=== PATIENT | male | born 1970 | race Caucasian/White ===

== ENCOUNTER 2020-11-16 07:58 | Outpatient (CLI) | payer OTHER, SELFPAY ==
--- NOTE | 2020-11-16 08:08 | MR_ITS ---
WS: [id number] MRI RIGHT KNEE HISTORY: M25.569 - Pain in unspecified knee COMPARISON: 09/22/2020 Anterior cruciate ligament: Intact. Posterior cruciate ligament: Intact. Medial collateral ligament: Intact. Posterior lateral corner structures: Intact. Medial menisci: Horizontal tear in the posterior meniscus extends to the inferior articular surface. Anterior horn is normal. Lateral meniscus: Intact. Normal signal, size and shape. Extensor mechanism: Distal quadriceps tendon and patellar tendons are intact. Fluid and soft tissue: Small suprapatellar joint effusion No Caro's cyst. Osseous and articular structures: Patellofemoral compartment: Normal. Medial compartment: Very mild narrowing of the medial compartment. There is intermediate increased si gnal in the cartilage of the tibial plateau and femoral condyle towards the intercondylar notch. No f ull-thickness tears are identified. This probably indicates contusion type injury. Small amount of ma rrow edema in the medial tibial plateau. Lateral compartment: Very minimal narrowing and fissuring of the cartilage. No full thickness defect or marrow edema. MR/MR knee RT wo con* [id number] IMPRESSION: 1. Horizontal tear posterior horn medial meniscus. 2. Contusion type injury involving the cartilage in the medial compartment tow ards the intercondylar notch. 3. Small amount of marrow edema in the medial tibial plateau towards the MCL.
== END 2020-11-16 07:59 | disposition home or self-care (01) ==
PROVIDERS: Visit Provider Orthopaedic Surgery
DX: M25.561 Pain in right knee (principal); S83.241A Other tear of medial meniscus, current injury, right knee, initial encounter; X58.XXXA Exposure to other specified factors, initial encounter; R60.0 Localized edema
CPT/HCPCS: 73721

== ENCOUNTER → 2020-12-02 08:17 | Outpatient (BNVA) | payer OTHER, SELFPAY | PROVIDERS: Visit Provider Orthopaedic Surgery | DX: Z01.812 Encounter for preprocedural laboratory examination (principal); Z20.822 Contact with and (suspected) exposure to COVID-19 | CPT/HCPCS: 87635 ==

== ENCOUNTER 2020-12-08 07:53 | Day surgery (SDC) | payer OTHER, SELFPAY ==
[2020-12-07 15:03] VITALS: BMI 21.7
[2020-12-08] VITALS (7 sets, daily range): BP systolic 113–136; BP diastolic 72–90; PULSE 56–70; RESP 13–18; TEMP 36.1–36.8; O2SAT 97–100
[2020-12-08] MEDS: sodium chloride 0.9% 1,000 ML 30 ML IV (08:26)
--- NOTE | 2020-12-08 08:46 | ANES.PREANE2 ---
Pre-Anesthetic Assessment Pre-Anesthetic Assessment: Height/Weight: Height 1.85 m Weight 74.843 kg Temp Pulse Resp BP Pulse Ox 98.3 F 68 18 116/72 97 12/08/20 08:13 12/08/20 08:13 12/08/20 08:13 12/08/20 08:13 12/08/20 08:13 Preop Diagnosis: Knee Medial meniscal tear Proposed Procedure: Operation Date: 12/08/20 09:45 Proposed Procedures p Knee Arthroscopy right 53257 S83.206A(Right) - Brian Martinez MD Familial anesthetic complications: None Was Beta Demond taken within 24 hours: N/A Was Clonidine taken within 24 hours: N/A Last intake: Intake Last Liquid Date 12/07/20 Last Liquid Time 21:00 Last Solid Date 12/07/20 Last Solid Time 21:00 Social: Social History: Tobacco and No alcohol Exam: Pre-Anes Outpt Exam: alert, oriented x 3, clear to auscultation bilaterally and regular rate & rhythm Airway: Cervical ROM: WNL MP: 2 Dentition: Chipped Anesthetic Plan: ASA status: 2 Anesthesia: General Risk of > 500 ml blood loss (7ml/kg in children): No Meds/Allergies Current Medications: Current Medications Generic Name Dose Route Start Last Admin Trade Name Freq PRN Reason Stop Dose Admin Sodium Chloride 1,000 mls @ 30 ml s/hr 12/08/20 08:00 12/08/20 08:26 Sodium Chloride 0.9% IV 12/09/20 07:59 30 mls/hr .Q24H JESUS Administration PFSH Anesthesia PFSH: Family History Mother Rheumatoid arthritis Grandfather Stroke Social History Smoking and tobacco status: current every day smoker e-cigarettes E-cig/vape details: vape Alcohol intake: former Data Anesthesia Cardiac Studies: No Data to Display
--- NOTE | 2020-12-08 09:38 | W.PM.OPSUD ---
Surgery/Procedure H&P Update DATE OF PROCEDURE: December 08, 2020 DATE H&P PERFORMED: 11/25/20 H&P UPDATE INFORMATION: I have reviewed H&P completed within last 30 days PREOP DIAGNOSIS: Knee Medial meniscal tear PLANNED PROCEDURE: Operation Date: 12/08/20 09:45 Proposed Procedures p Knee Arthroscopy right 16950 S83.206A(Right) - Brian Martinez MD
[2020-12-08] MEDS: morphine 4 mg/mL SDV 1 mL 8 MG IM (10:18)
--- NOTE | 2020-12-08 10:27 | PM.OP ---
Operative Report Date of procedure: December 08, 2020 Pre-op Diagnosis: Right knee Medial meniscal tear Post-op diagnosis: same Post-op Findings: Normal right knee Procedure Done: Diagnostic arthroscopy right knee Pathology: none sent Surgeon: Brian Martinez Anesthesia: General Estimated blood loss (mL): 2 Findings: The patient had no chondromalacia, or central stabilizing ligamentous abnormalities. Condition: stable Disposition: PACU Brief History: The patient is a 50-year-old with chronic right knee pain and an MRI suggesting medial meniscal tearing. Arthroscopic surgery was indicated to improve pain and function Procedure: The patient was taken to the operating room and given a general and he was prepped and draped in the supine position with a tourniquet on the right thigh. The knee was infiltrated with 30 cc of 0.5% Marcaine and 4 mg of morphine. Medial meniscus was carefully probed with no tearing identified. The lateral meniscus was healthy as were chondral surface. The cruciate ligaments were probed and found to be intact and healthy.. The knee was irrigated with saline. Portals were closed with 3-0 Prolene. Sterile dressings were applied. The knee was entered through standard inferior medial and inferior lateral portal. The diagnostic portion arthroscopy was performed with the medial meniscus carefully probed. No significant tearing was identified. The patient was extubated and taken to the recovery room in stable condition.
--- NOTE | 2020-12-08 14:09 | ANE.PACU2 ---
Inpatient post-anesthesia follow up: Airway intact: Yes Vital signs: Temperature 98.1 F Pulse Rate 59 Respiratory Rate 18 Blood Pressure 116/72 Pulse Oximetry 98 Oxygen Delivery Me thod Room Air Oxygen Flow Rate 8 Fraction of Inspir ed Oxygen Hydration adequate: Yes Nausea and vomiting: No Pain level: 2 Mental status: Baseline
== END 2020-12-08 11:35 | disposition home or self-care (01) ==
PROVIDERS: Visit Provider Orthopaedic Surgery
PROC: (CPT 29870; principal; 2020-12-08 09:35)
DX: S83.241A Other tear of medial meniscus, current injury, right knee, initial encounter (principal); X58.XXXA Exposure to other specified factors, initial encounter; F17.290 Nicotine dependence, other tobacco product, uncomplicated
CPT/HCPCS: 29870; J0690; J1100; J2270; J2405; J2704; J3010; J3490; J7030

== ENCOUNTER 2021-05-27 13:19 | Emergency (ER) | payer OTHER, SELFPAY ==
[2021-05-27 13:33] VITALS: BP 109/74; PULSE 52; RESP 15; TEMP 36.7; O2SAT 96; BMI 22.4
--- NOTE | 2021-05-27 13:46 | XRR_ITS ---
PROCEDURE INFORMATION: Exam: XR Left Hand Exam date and time: 05/27/2021 1:46 PM Age: 51 years old Clinical indication: Injury or trauma; Work related; Crushing; Injury date: 05/27/21; Injury details: Patient was drilling through 2 boards and the drill got find it up causing the thumb of his left hand to get pain between 2 boards. His pain is just located in his thumb; Additional info: Injury to hand-crush type injury between wood boards-thumb TECHNIQUE: Imaging protocol: XR Left hand. Views: 3 or more views. Total images: 3 COMPARISON: No relevant prior studies available. FINDINGS: Bones/joints: Small ossification dorsal to 1st metacarpal phalangeal joint without adjacent soft tissue swelling felt to represent tiny osteophyte or avulsed fragment. No additional fracture, subluxation, or dislocation detected. Soft tissues: See Bones/joints finding. XR/XR hand LT min 3V* [id number] IMPRESSION: Small ossification dorsal to 1st metacarpal phalangeal joint without adjacent soft tissue swelling felt to represent tiny osteophyte or avulsed fragment. Radiation Dose CTDIVOL = (mGy): DLP = (mGy-cm)
--- NOTE | 2021-05-27 13:55 | ED_ITS ---
HPI - Extremity Problem General: Chief complaint: Extremity Injury, Upper Stated complaint: left hand pain Time Seen by Provider: 05/27/21 13:36 History of Present Illness: HPI Narrative: Patient is a 51-year-old male comes to the ED with left hand injury. Injury occurred just prior to arrival. Patient was drilling through 2 boards and the drill got find it up causing the thumb of his left hand to get pain between 2 boards. His pain is just located in his thumb and he rates it currently a 5 out of 10. Says it hurts for him to do any movement with his thumb. He has not taken any Tylenol or ibuprofen before coming to the ED. Associated symptoms: Deny chest pain, fever(s) or rash Review of Systems Const: Denies: fever(s), chills or fatigue Eyes: Denies: change in vision or eye discomfort ENMT: Denies: throat pain, odynophagia, nasal discharge or nasal congestion Card: Denies: chest pain, palpitations, edema, swelling of feet/ankles, dyspnea on exertion or orthopnea Resp: Denies: dyspnea, productive cough or non-productive cough GI: Denies: abdominal pain, nausea, vomiting, diarrhea, constipation or hematochezia : Denies: flank pain, difficulty urinating, dysuria or hematuria Musc: Reports: extremity pain (left hand-thumb); Denies: neck pain, back pain or extremity swelling Skin/Breast: Denies: rash or new lesions Neuro: Denies: headache(s), numbness in extremities or weakness in extremities PFS ED PFSH: Family History Mother Rheumatoid arthritis Grandfather Stroke Social History Smoking and tobacco status: current every day smoker e-cigarettes E-cig/vape details: vape Alcohol intake: former Physical Exam Const: COMMON NORMALS: no acute distress, patient oriented x3, healthy appearing and alert GENERAL APPEARANCE: cooperative and comfortable HENMT: COMMON NORMALS: normocephalic HEAD & SCALP: normocephalic MOUTH: Normal oral and palatal mucosa present THROAT: posterior oropharynx normal and uvula midline Neck/C-Spine: COMMON NORMALS: supple GENERAL: Yes normal visual inspection Resp: COMMON NORMALS: normal respiratory effort, No retractions, No use of accessory muscles and clear to auscultation bilaterally AUSCULTATION: clear to auscultation bilaterally Cardio: COMMON NORMALS: regular rate, regular rhythm, S1 normal heart sound present, S2 normal heart sound present, No gallops present (Cardio), No clicks present (Cardio), No murmurs present (Cardio) and Peripheral pulses 2+ throughout RATE: regular rate RHYTHM: regular rhythm HEART SOUNDS: S1 normal heart sound present and S2 normal heart sound present PERIPHERAL PULSES: Peripheral pulses 2+ throughout GI: COMMON NORMALS: Normal to inspection, nondistended, normoactive bowel sounds present, Soft to palpation, non-tender and no masses PALPATION: Yes Soft to palpation : COMMON NORMALS: Yes no CVA tenderness BLADDER/KIDNEY EXAM: Yes no CVA tenderness Back/Pelvis: COMMON NORMALS: no CVA tenderness Extremity: LEFT UPPER EXTREMITY: Yes hand & digits Left hand and digits: Yes inspection (No deformity noted. Mild swelling. No nail damage), Yes palpation (Tenderness over PIP joint), Yes ROM (Full range of motion, but endorses pain) and Yes neurovascular exam (Intact) Neuro: COMMON NORMALS: patient oriented x3 and moves all extremities SENSORIUM/ORIENTATION: Yes alert Skin: GENERAL SKIN EXAM: dry skin Course Vital Signs: Vital signs: Vital Signs Temperature 98.1 F 05/27/21 16:31 Pulse Rate 52 L 05/27/21 16:31 Respiratory Rate 15 05/27/21 16:31 Blood Pressure 109/74 05/27/21 16:31 Pulse Oximetry 96 05/27/21 16:31 MDM - Extremity (Nontraumatic) MDM Narrative: Medical decision making narrative: Patient is a 51-year-old male comes to the ED with left hand injury. Patient had a smashing injury to left thumb. No nail damage noted. Patient has full range of motion, but does endorse some pain with movement. Neurovascular tact. Left hand x-ray showed no acute fracture. Imaging Data^: Xray Ortho: Attestation: I personally reviewed and interpreted this imaging study as follows: My impression: Left hand?no acute fractures or findings. Discharge Plan Discharge Patient Disposition: Home Clinical Impression: Contusion of left thumb Qualifiers: Encounter type: initial encounter Damage to nail status: without damage Qualified Code(s): S60.012A - Contusion of left thumb without damage to nail, initial encounter Condition: Stable Prescriptions: No Action naproxen 250 mg tablet 250 mg PO BID PRN (Reason: Pain, Moderate) RF: 0 Discharge Orders: Discharge ED (Routine); Ordered 05/27/21 Ordered By: Indio Gomez Discharge Diet: Regular Discharge Activity: Increase activity as tolerated and Limit activity as instru cted Patient Instructions: Contusion in Adults (ED) Activity Restrictions/Additional Instructions: Follow-up with medical provider as directed in 7 to 10 days for reevaluation. Limit activity and rest left hand for the next couple days. Apply cold pack on left thumb to help with symptoms. Take [id number] ibuprofen or naproxen help with pain and swelling. Return to the ER or your medical provider if condition worsens. Please read and understand discharge instructions. Thank you for choosing [facility] for your healthcare needs today. Please realize this is an emergency room and that we are providing you with a medical screening exam and this may not be complete and all inclusive of all the testing and or work up that you may need to determine your ailment or severity of your illness. It is very important that you follow up as instructed or that you return to the Emergency Department should you have concerns or if your condition changes or worsens in any way. Coding Level of Care Code ED Insurance Biller for Dante Stevens Exam Comprehensive
[2021-05-27 16:31] VITALS: BP 109/74; PULSE 52; RESP 15; TEMP 36.7; O2SAT 96
== END 2021-05-27 16:31 | disposition home or self-care (01) ==
PROVIDERS: Emergency Provider Physician Assistant
DX: S60.012A Contusion of left thumb without damage to nail, initial encounter (principal); F17.290 Nicotine dependence, other tobacco product, uncomplicated; W23.0XXA Caught, crushed, jammed, or pinched between moving objects, initial encounter
CPT/HCPCS: 73130; 99282

== ENCOUNTER 2021-09-21 08:28 | Emergency (ER) | payer OTHER, SELFPAY ==
[2021-09-21 08:50] VITALS: BP 122/78; PULSE 61; RESP 16; TEMP 36.7; O2SAT 98; BMI 22.4
[2021-09-21 08:56] VITALS: BP 122/75; PULSE 66; RESP 16; O2SAT 97
--- NOTE | 2021-09-21 08:57 | XR_ITS ---
WS: [id number] Portable AP upright chest, 09/21/2021 Clinical Data: CP Comparison: None. Findings: No nodules, masses or effusions are seen. The heart is normal. The pulmonary vascularity is not increased. No pneumonia or pneumothorax is seen. Monitor leads are on the chest wall. XR/XR chest 1V portable [id number] Impression: Negative chest.
--- NOTE | 2021-09-21 08:57 | ECG_ITS ---
[facility] Test Date: 2021-09-21 Pat Name: Jh Tello Department: Room: Gender: Male Wardrobe Stylist: : 1970 Requested By: Hakan Mina Order Number: [id number] MD: Awilda Hernandez M.D. Measurements Intervals [place] Rate: 65 P: 67 [place]: 152 QRS: 78 QRSD: 84 T: 63 QT: 393 QTc: 410 Interpretive Statements SINUS RHYTHM No previous ECG available for comparison Electronically Signed On 09-22-2021 6:00:04 GREENHOUSE INSTRUCTOR by Awilda Hernandez M.D. [id number]
--- NOTE | 2021-09-21 08:57 | PC.NURSE ---
patient states his depth perception might be off as he has been walking into door frames alot lately
--- NOTE | 2021-09-21 09:05 | W.ED.CHESTPA ---
Documented by User: HORACE Patrick 09/21/21 11:08 HPI - Chest Pain General: Chief Complaint: Chest Pain Stated Complaint: Chest Pain Time Seen by Provider: 09/21/21 08:33 History of Present Illness: Patient states he has had left-sided chest pain since yesterday. Said it hurts when he rolls over on the left side. Denies any recent illness. Denies any chest heaviness nausea vomiting diarrhea fever chills. 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 Associated symptoms: Deny abdominal pain, dyspnea, fever(s), nausea or vomiting Review of Systems Const: Denies: fever(s), chills or body aches Eyes: Denies: eye discomfort ENMT: Denies: throat pain Card: Reports: chest pain (With movement and palpation. And with deep breath.) Resp: Denies: dyspnea GI: Denies: abdominal pain, nausea or vomiting Skin/Breast: Denies: rash Neuro: Denies: headache(s) Psych: Denies: depression or suicidal ideation PFSH ED PFSH: Family History Mother Rheumatoid arthritis Grandfather Stroke Social History Smoking and tobacco status: current every day smoker e-cigarettes E-cig/vape details: vape Alcohol intake: former Physical Exam Const: COMMON NORMALS: no acute distress, patient oriented x3 and alert HENMT: COMMON NORMALS: normocephalic and external ears normal HEAD & SCALP: normocephalic EXTERNAL EAR: Yes external ears normal Eye: COMMON NORMALS: EOMs intact bilaterally Neck/C-Spine: COMMON NORMALS: no JVD Chest: CHEST: Yes other (Tenderness to left chest wall lateral to the nipple and below that area.) Resp: COMMON NORMALS: normal respiratory effort and No use of accessory muscles Cardio: COMMON NORMALS: no JVD GI: INSPECTION: Yes normal to inspection Extremity: COMMON NORMALS: normal to inspection and full ROM Neuro: COMMON NORMALS: patient oriented x3 SENSORIUM/ORIENTATION: Yes alert Psych: COMMON NORMALS: mental status grossly normal Skin: COMMON NORMALS: no rashes or lesions noted GENERAL SKIN EXAM: no rashes or lesions noted Course Vital Signs: Vital signs: Vital Signs Temperature 98.1 F 09/21/21 08:50 Pulse Rate 55 L 09/21/21 10:26 Respiratory Rate 13 09/21/21 10:26 Blood Pressure 126/72 09/21/21 10:26 Pulse Oximetry 96 09/21/21 10:26 MDM - Chest Pain Medical Decision Making Chest wall pain. Patient had EKG labs done were all negative for any concerning findings. Patient had pain with palpation left chest wall. After visiting with patient later about results he said that they were doing a big job with heating and cooling yesterday and lifting some form of brown stuff and and he thinks maybe he had pulled chest wall muscle. Follow-up primary care provider. Lab Data : 09/21/21 08:38 09/21/21 08:38 Radiology Impressions Chest X-Ray 09/21/21 08:57 Impression: Negative chest. Laboratory Results WBC 6.2 10^3/uL (4.0-10.0) 09/21/21 08:38 RBC 5.16 10^6/uL (4.1-5.3) 09/21/21 08:38 Hgb 15.9 g/dL (11.7-16.6) 09/21/21 08:38 Hct 48.2 % (42.0-52.0) 09/21/21 08:38 MCV 93.4 fl (80-94) 09/21/21 08:38 MCH 30.8 pg (28.0-34.0) 09/21/21 08:38 MCHC 33.0 g/dL (30.0-36.0) 09/21/21 08:38 RDW 11.9 % (12.1-15.1) L 09/21/21 08:38 Plt Count 200 10^3/cmm (130-400) 09/21/21 08:38 MPV 11.4 fL (7.4-10.4) H 09/21/21 08:38 Neut % (Auto) 60.0 % 09/21/21 08:38 Lymph % (Auto) 26.2 % 09/21/21 08:38 [place] % (Auto) 9.9 % 09/21/21 08:38 Eos % (Auto) 2.8 % 09/21/21 08:38 Baso % (Auto) 0.8 % 09/21/21 08:38 Neut # (Auto) 3.69 10^3/uL (1.8-7.7) 09/21/21 08:38 Lymph # (Auto) 1.6 10^3/uL (0.8-4.8) 09/21/21 08:38 [place] # (Auto) 0.6 10^3/uL (0.2-0.9) 09/21/21 08:38 Eos # (Auto) 0.2 10^3/uL (0.0-0.8) 09/21/21 08:38 Baso # (Auto) 0.1 10^3/uL (0.0-0.1) 09/21/21 08:38 Nucleated RBC % (auto) 0 % 09/21/21 08:38 Nucleated RBCs # 0.0 /100WBC 09/21/21 08:38 PT 12.80 SECONDS (12.1-14.9) 09/21/21 09:42 INR 0.94 (0.8-1.2) 09/21/21 09:42 Sodium 139 mmol/L (136-145) 09/21/21 08:38 Potassium 4.2 mmol/L (3.5-5.1) 09/21/21 08:38 Chloride 102 mmol/L (98-107) 09/21/21 08:38 Carbon Dioxide 25 mmol/L (22-29) 09/21/21 08:38 Anion Gap 16.2 (5-19) 09/21/21 08:38 BUN 10 mg/dL (6-20) 09/21/21 08:38 Creatinine 1.0 mg/dL (0.7-1.2) 09/21/21 08:38 GFR Calculation 78.8 mL/min (90-130) L 09/21/21 08:38 Glucose 101 mg/dL (65-115) 09/21/21 08:38 Calculated Osmolality 287 mOsm/kg (285-295) 09/21/21 08:38 Calcium 9.4 mg/dL (8.5-10.5) 09/21/21 08:38 Total Bilirubin 0.9 mg/dL (0.15-1.2) 09/21/21 08:38 AST 19 U/L (0-40) 09/21/21 08:38 ALT 17 U/L (0-41) 09/21/21 08:38 Alkaline Phosphatase 82 IU/L (40-130) 09/21/21 08:38 Troponin T Baseline 6 ng/L (0-15) 09/21/21 08:38 Troponin T 120 Minute 10.47 ng/L (0-15) 09/21/21 10:51 Delta Troponin T 4.47 ABS# (0-10) 09/21/21 10:51 Total Protein 6.8 g/dL (6.6-8.7) 09/21/21 08:38 Albumin 4.6 g/dL (3.5-5.2) 09/21/21 08:38 Globulin 2.2 g/dL (1.3-4.6) 09/21/21 08:38 Lipase 40 U/L (13-60) 09/21/21 08:38 Discharge Plan Discharge Patient Disposition: Home Clinical Impression: Acute chest wall pain Condition: Stable Prescriptions: New Celebrex 100 mg capsule 100 mg PO BID Qty: 20 0RF No Action Fish Oil 1 cap PO QPM 0RF MSM 1 cap PO BID 0RF Plexus Xfactor Multivitamin 2 tab PO QPM 0RF Probiotic 1 cap PO QAM 0RF Discharge Orders: Discharge ED (Routine); Ordered 09/21/21 Ordered By: Hakan Mina Discharge Diet: Usual diet Discharge Activity: Resume usual activity Activity Restrictions/Additional Instructions: Follow-up with medical provider as directed. Take medications as prescribed. Return to the ER or your medical provider if condition worsens. Please read and understand discharge instructions. If any questions ask please. Coding Level of Care Code ED Research Archaeologist for Chg Fwd Exam Comprehensive Documented by User: Jonah Jacobson DO 09/21/21 12:19 HPI - Chest Pain General: Chief Complaint: Chest Pain Stated Complaint: Chest Pain Time Seen by Provider: 09/21/21 08:33 PFSH ED PFSH: Family History Mother Rheumatoid arthritis Grandfather Stroke Social History Smoking and tobacco status: current every day smoker e-cigarettes E-cig/vape details: vape Alcohol intake: former Course Vital Signs: Vital signs: Vital Signs Temperature 98.1 F 09/21/21 08:50 Pulse Rate 55 L 09/21/21 10:26 Respiratory Rate 13 09/21/21 10:26 Blood Pressure 126/72 09/21/21 10:26 Pulse Oximetry 96 09/21/21 10:26 MDM - Chest Pain Medical Decision Making Chest wall pain. Patient had EKG labs done were all negative for any concerning findings. Patient had pain with palpation left chest wall. After visiting with patient later about results he said that they were doing a big job with heating and cooling yesterday and lifting some form of brown stuff and and he thinks maybe he had pulled chest wall muscle. Follow-up primary care provider. Chart reviewed and patient discussed with midlevel. Agree with assessment and plan. Lab Data : 09/21/21 08:38 09/21/21 08:38 Radiology Impressions Chest X-Ray 09/21/21 08:57 Impression: Negative chest. Laboratory Results WBC 6.2 10^3/uL (4.0-10.0) 09/21/21 08:38 RBC 5.16 10^6/uL (4.1-5.3) 09/21/21 08:38 Hgb 15.9 g/dL (11.7-16.6) 09/21/21 08:38 Hct 48.2 % (42.0-52.0) 09/21/21 08:38 MCV 93.4 fl (80-94) 09/21/21 08:38 MCH 30.8 pg (28.0-34.0) 09/21/21 08:38 MCHC 33.0 g/dL (30.0-36.0) 09/21/21 08:38 RDW 11.9 % (12.1-15.1) L 09/21/21 08:38 Plt Count 200 10^3/cmm (130-400) 09/21/21 08:38 MPV 11.4 fL (7.4-10.4) H 09/21/21 08:38 Neut % (Auto) 60.0 % 09/21/21 08:38 Lymph % (Auto) 26.2 % 09/21/21 08:38 [place] % (Auto) 9.9 % 09/21/21 08:38 Eos % (Auto) 2.8 % 09/21/21 08:38 Baso % (Auto) 0.8 % 09/21/21 08:38 Neut # (Auto) 3.69 10^3/uL (1.8-7.7) 09/21/21 08:38 Lymph # (Auto) 1.6 10^3/uL (0.8-4.8) 09/21/21 08:38 [place] # (Auto) 0.6 10^3/uL (0.2-0.9) 09/21/21 08:38 Eos # (Auto) 0.2 10^3/uL (0.0-0.8) 09/21/21 08:38 Baso # (Auto) 0.1 10^3/uL (0.0-0.1) 09/21/21 08:38 Nucleated RBC % (auto) 0 % 09/21/21 08:38 Nucleated RBCs # 0.0 /100WBC 09/21/21 08:38 PT 12.80 SECONDS (12.1-14.9) 09/21/21 09:42 INR 0.94 (0.8-1.2) 09/21/21 09:42 Sodium 139 mmol/L (136-145) 09/21/21 08:38 Potassium 4.2 mmol/L (3.5-5.1) 09/21/21 08:38 Chloride 102 mmol/L (98-107) 09/21/21 08:38 Carbon Dioxide 25 mmol/L (22-29) 09/21/21 08:38 Anion Gap 16.2 (5-19) 09/21/21 08:38 BUN 10 mg/dL (6-20) 09/21/21 08:38 Creatinine 1.0 mg/dL (0.7-1.2) 09/21/21 08:38 GFR Calculation 78.8 mL/min (90-130) L 09/21/21 08:38 Glucose 101 mg/dL (65-115) 09/21/21 08:38 Calculated Osmolality 287 mOsm/kg (285-295) 09/21/21 08:38 Calcium 9.4 mg/dL (8.5-10.5) 09/21/21 08:38 Total Bilirubin 0.9 mg/dL (0.15-1.2) 09/21/21 08:38 AST 19 U/L (0-40) 09/21/21 08:38 ALT 17 U/L (0-41) 09/21/21 08:38 Alkaline Phosphatase 82 IU/L (40-130) 09/21/21 08:38 Troponin T Baseline 6 ng/L (0-15) 09/21/21 08:38 Troponin T 120 Minute 10.47 ng/L (0-15) 09/21/21 10:51 Delta Troponin T 4.47 ABS# (0-10) 09/21/21 10:51 Total Protein 6.8 g/dL (6.6-8.7) 09/21/21 08:38 Albumin 4.6 g/dL (3.5-5.2) 09/21/21 08:38 Globulin 2.2 g/dL (1.3-4.6) 09/21/21 08:38 Lipase 40 U/L (13-60) 09/21/21 08:38 Discharge Plan Discharge Patient Disposition: Home Clinical Impression: Acute chest wall pain Condition: Stable Prescriptions: New Celebrex 100 mg capsule 100 mg PO BID Qty: 20 0RF No Action Fish Oil 1 cap PO QPM 0RF MSM 1 cap PO BID 0RF Plexus Xfactor Multivitamin 2 tab PO QPM 0RF Probiotic 1 cap PO QAM 0RF Discharge Orders: Discharge ED (Routine); Ordered 09/21/21 Ordered By: Hakan Mina Discharge Diet: Usual diet Discharge Activity: Resume usual activity Activity Restrictions/Additional Instructions: Follow-up with medical provider as directed. Take medications as prescribed. Return to the ER or your medical provider if condition worsens. Please read and understand discharge instructions. If any questions ask please. Coding Level of Care Code ED Research Archaeologist for Dante Fwd Exam Comprehensive
[2021-09-21 09:07] LABS: Basophils # 0.1 10^3/uL (0.0-0.1); Basophils % 0.8 %; Eosinophils # 0.2 10^3/uL (0.0-0.8); Eosinophils % 2.8 %; Hematocrit 48.2 % (42.0-52.0); Hemoglobin 15.9 g/dL (11.7-16.6); Lymphocytes # 1.6 10^3/uL (0.8-4.8); Lymphocytes % 26.2 %; Mean Corpuscular Hemoglobin 30.8 pg (28.0-34.0); Mean Corpuscular Volume 93.4 fl (80-94); Mean Platelet Volume 11.4 fL (7.4-10.4); Monocytes # 0.6 10^3/uL (0.2-0.9); Monocytes % 9.9 %; Neutrophils # 3.69 10^3/uL (1.8-7.7); Nucleated Red Blood Cells % 0 %; Platelet Count 200 10^3/cmm (130-400); Red Blood Count 5.16 10^6/uL (4.1-5.3); Red Cell Distribution Width 11.9 % (12.1-15.1); White Blood Count 6.2 10^3/uL (4.0-10.0)
[2021-09-21 09:26] VITALS: BP 113/75; PULSE 59; RESP 13; O2SAT 96
[2021-09-21 09:28] LABS: Alanine Aminotransferase 17 U/L (0-41); Albumin Level 4.6 g/dL (3.5-5.2); Alkaline Phosphatase 82 IU/L (40-130); Anion Gap 16.2 (5-19); Aspartate Amino Transferase 19 U/L (0-40); Blood Urea Nitrogen 10 mg/dL (6-20); Calcium 9.4 mg/dL (8.5-10.5); Carbon Dioxide 25 mmol/L (22-29); Chloride 102 mmol/L (98-107); Globulin 2.2 g/dL (1.3-4.6); Glomerular Filtration Rate 78.8 mL/min (90-130); Glucose 101 mg/dL (65-115); Lipase 40 U/L (13-60); Osmolality Calculated 287 mOsm/kg (285-295); Potassium 4.2 mmol/L (3.5-5.1); Sodium 139 mmol/L (136-145); Total Bilirubin 0.9 mg/dL (0.15-1.2); Total Protein 6.8 g/dL (6.6-8.7)
[2021-09-21 09:56] VITALS: BP 111/73; PULSE 60; RESP 14; O2SAT 97
[2021-09-21 10:14] LABS: INR 0.94 (0.8-1.2)
[2021-09-21 10:26] VITALS: BP 126/72; PULSE 55; RESP 13; O2SAT 96
[2021-09-21 10:56] LABS: Troponin(5th) Baseline 6 ng/L (0-15)
--- NOTE | 2021-09-21 10:57 | ECG_ITS ---
[facility] Test Date: 2021-09-21 Pat Name: Jh Tello Department: Room: Gender: Male Electromechanical Technician: : 1970 Requested By: Hakan Mina Order Number: [id number] MD: Awilda Hernandez M.D. Measurements Intervals [place] Rate: 53 P: 60 [place]: 164 QRS: 76 QRSD: 85 T: 62 QT: 429 QTc: 404 Interpretive Statements SINUS BRADYCARDIA POSSIBLE RIGHT VENTRICULAR CONDUCTION DELAY [RSR (QR) IN V1/V2] Compared to ECG 09/21/2021 08:46:14 Sinus rhythm no longer present Electronically Signed On 09-22-2021 6:07:35 ALL ROUND BUTCHER by Awilda Hernandez M.D. [id number]
[2021-09-21 11:19] LABS: Troponin 5 2HR 10.47 ng/L (0-15)
[2021-09-21 11:33] LABS: Troponin 5 2HR Delta 4.47 ABS# (0-10)
--- NOTE | 2021-09-21 14:57 | ECG_ITS ---
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 Measurements Intervals [place] Rate: 51 P: 51 VA: 162 QRS: 72 QRSD: 90 T: 56 QT: 431 QTc: 399 Interpretive Statements SINUS BRADYCARDIA POSSIBLE RIGHT VENTRICULAR CONDUCTION DELAY [RSR (QR) IN V1/V2] Compared to ECG 09/21/2021 08:46:14 Sinus rhythm no longer present Electronically Signed On 09-22-2021 6:07:40 NEON SIGN MAKER by Awilda Hernandez M.D. [id number]
== END 2021-09-21 12:09 | disposition home or self-care (01) ==
PROVIDERS: Emergency Provider Nurse Practitioner Family
DX: R07.89 Other chest pain (principal); F17.290 Nicotine dependence, other tobacco product, uncomplicated
CPT/HCPCS: 71045; 80053; 83690; 84484; 85025; 85610; 93005; 99283

== ENCOUNTER 2023-12-24 09:42 | Emergency (ER) | payer OTHER, SELFPAY ==
--- NOTE | 2023-12-24 09:45 | XRR_ITS ---
PROCEDURE INFORMATION: Exam: XR Chest Exam date and time: 12/24/2023 9:51 AM Age: 53 years old Clinical indication: Pain; Angina pectoris; Additional info: Chest pain TECHNIQUE: Imaging protocol: Radiologic exam of the chest. Views: 1 view. COMPARISON: CR XR chest 1V portable [id number] 09/21/2021 9:04 AM FINDINGS: Lungs: Unremarkable. No consolidation. Pleural spaces: Unremarkable. No pleural effusion. No pneumothorax. Heart/Mediastinum: Unremarkable. No cardiomegaly. Bones/joints: Unremarkable. XR/XR chest 1V portable [id number] IMPRESSION: No acute findings.
--- NOTE | 2023-12-24 09:48 | ECG_ITS ---
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 Measurements Intervals [place] Rate: 60 P: 55 UT: 155 QRS: 71 QRSD: 79 T: 51 QT: 415 QTc: 415 Interpretive Statements SINUS RHYTHM Compared to ECG 09/21/2021 11:38:14 Sinus bradycardia no longer present Electronically Signed On 12-24-2023 17:20:22 CDT by Waldemar Morales M.D. [id number]
[2023-12-24 09:50] VITALS: BP 122/78; PULSE 58; RESP 16; TEMP 36.6; O2SAT 97
--- NOTE | 2023-12-24 09:51 | ED_ITS ---
HPI - Syncope 2 General: Chief Complaint: Chest Pain Stated Complaint: Syncope, Chest pain Time Seen by Provider: 12/24/23 09:45 Source: patient and EMS Mode of arrival: EMS Limitations: no limitations History of Present Illness: Patient is a 53-year-old male who presents [place] ED today [facility] the [place] via [facility] for evaluation of a syncopal episode. Patient states he was at the [facility] getting his labs drawn when he experienced a syncopal episode. [facility] there was questionable seizure-like activity. Patient states he has had similar passing out episodes before with previous lab draws and tattoos. Patient states when he came to he felt drained and had a small amount of chest pain. 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 No other known or significant cardiac history. He arrives today in no acute distress with stable vital signs. MD complaint: loss of consciousness Onset (ago): hour(s) -: second(s) Prodromal symptoms: vision changes Witnessed: Yes - by Bystander Context: other (during blood draw) Injuries sustained associated with event: none Associated symptoms: Reports chest pain; Deny abdominal pain, fever(s), headache(s), lightheadedness, nausea or vertigo History: previous syncopal episode (during blood draws/tattoos) and other (hx of WPW-underwent cardiac ablation ) Treatments prior to arrival: none Review of Systems 2 Const: Reports: other (states he feels drained ); Denies: fever(s), chills, body aches, fatigue or malaise Eyes: Denies: change in vision or blurry vision Card: Reports: chest pain and syncope; Denies: palpitations, irregular heart rhythm, edema, swelling of feet/ankles, lightheadedness, pre-syncope, dyspnea on exertion, orthopnea, leg pain with exertion or acrocyanosis Resp: Denies: dyspnea, productive cough or pain on inspiration GI: Denies: abdominal pain, nausea, vomiting, heartburn or diarrhea : Denies: flank pain, difficulty urinating or dysuria Musc: Denies: neck pain, back pain, extremity pain, extremity swelling or joint pain Skin/Breast: Denies: rash Neuro: Reports: seizure-like activity; Denies: headache(s), numbness in extremities, weakness in extremities, sensory changes, difficulty walking, dizziness, vertigo, confusion, Slurred speech present or difficulty communicating thoughts PFSH ED 2 PFSH: Family History Mother Rheumatoid arthritis Grandfather Stroke Social History Smoking and tobacco/nicotine status: current every day tobacco/nicotine user e- cigarettes E-cig/vape details: vape Alcohol intake: former Physical Exam 2 Const: COMMON NORMALS: no acute distress, average body habitus, patient oriented x3, no limitations, healthy appearing, alert and well nourished G ENERAL APPEARANCE: cooperative ORIENTATION/CONSCIOUSNESS: Yes awake, Yes oriented to person, Yes oriented to place and Yes oriented to time HENMT: COMMON NORMALS: normocephalic and atraumatic HEAD & SCALP: normal to inspection, normocephalic and atraumatic FACE & SINUS: normal facial exam Neck/C-Spine: COMMON NORMALS: full ROM, no lymphadenopathy, supple and no meningeal signs Chest: COMMONS NORMALS: normal inspection of the chest Resp: COMMON NORMALS: normal respiratory effort and clear to auscultation bilaterally AUSCULTATION: clear to auscultation bilaterally Cardio: COMMON NORMALS: regular rate and regular rhythm RATE: regular rate RHYTHM: regular rhythm GI: COMMON NORMALS: Normal to inspection, nondistended, normoactive bowel sounds present, Soft to palpation, non-tender, No hepatosplenomegaly present and no masses PALPATION: Yes Soft to palpation and Yes No hepatosplenomegaly present : COMMON NORMALS: Yes no CVA tenderness BLADDER/KIDNEY EXAM: Yes no CVA tenderness Back/Pelvis: COMMON NORMALS: no CVA tenderness and thoracic and lumbar spine normal to inspection Extremity: COMMON NORMALS: normal to inspection GENERAL: Yes normal exam except as noted Neuro: ALONSO COMA SCALE: document GCS findings Alonso coma scale eye opening: Spontaneous Alonso coma scale verbal response: Orientated [place] coma scale motor response: Obey commands Alonso coma scale total score: 15 COMMON NORMALS: patient oriented x3, CN's II-XII intact bilaterally, moves all extremities, no focal motor deficits and no sensory deficits noted S ENSORIUM/ORIENTATION: Yes alert, Yes oriented to person, Yes oriented to place and Yes oriented to time MENINGEAL SIGNS: Yes no meningeal signs Skin: COMMON NORMALS: no rashes or lesions noted GENERAL SKIN EXAM: no rashes or lesions noted Course 2 Vital Signs: Vital signs: Vital Signs Temperature 97.8 F 12/24/23 09:50 Pulse Rate 54 L 12/24/23 12:00 Respiratory Rate 15 12/24/23 12:00 Blood Pressure 103/63 12/24/23 12:00 Pulse Oximetry 98 12/24/23 12:00 Oxygen Delivery Me thod Room Air 12/24/23 12:00 MDM - Syncope Medical Decision Making Patient is a 53-year-old male here following a syncopal episode while he was getting blood work drawn [place] the [place]. Patient states he has had previous syncopal episodes while getting blood drawn and during tattoos. These most likely are vasovagal episodes. Today there was questionable seizure-like activity although there was no elaboration or history on this further. Think given his previous history of similar syncopal episodes, an actual epileptic event would be unlikely. Vitals have been stable during his stay. Blood work including baseline and repeat troponins are unremarkable. His EKGs are unremarkable. Patient [facility] Return to ED precautions given. Differential Diagnosis Likely syncope due to orthostatic hypotension, vasovagal syncope and dehydration Medical Records I reviewed the patient's medical records. Lab Data I reviewed the patient's lab results. 12/24/23 10:00 12/24/23 10:00 Radiology Impressions Chest X-Ray 12/24/23 09:45 IMPRESSION: No acute findings. Laboratory Results WBC 4.19 10^3/uL (3.29-11.43) 12/24/23 10:00 RBC 4.79 10^6/uL (3.85-5.65) 12/24/23 10:00 Hgb 15.10 g/dL (11.27-16.99) 12/24/23 10:00 Hct 43.6 % (37-53) 12/24/23 10:00 MCV 91.0 fl (82-101) 12/24/23 10:00 MCH 31.5 pg (27-33) 12/24/23 10:00 MCHC 34.6 g/dL (30-55) 12/24/23 10:00 RDW 11.8 % (12.1-15.1) L 12/24/23 10:00 Plt Count 182 10^3/cmm (157-399) 12/24/23 10:00 MPV 10.9 fL (7.4-10.4) H 12/24/23 10:00 Neut % (Auto) 62.3 % 12/24/23 10:00 Lymph % (Auto) 25.3 % 12/24/23 10:00 [place] % (Auto) 10.5 % 12/24/23 10:00 Eos % (Auto) 1.2 % 12/24/23 10:00 Baso % (Auto) 0.5 % 12/24/23 10:00 Neut # (Auto) 2.61 10^3/uL (1.8-7.7) 12/24/23 10:00 Lymph # (Auto) 1.1 10^3/uL (0.8-4.8) 12/24/23 10:00 [place] # (Auto) 0.4 10^3/uL (0.2-0.9) 12/24/23 10:00 Eos # (Auto) 0.1 10^3/uL (0.0-0.8) 12/24/23 10:00 Baso # (Auto) 0.0 10^3/uL (0.0-0.1) 12/24/23 10:00 Nucleated RBC % (auto) 0 % 12/24/23 10:00 Nucleated RBCs # 0.0 /100WBC 12/24/23 10:00 Sodium 135 mmol/L (136-145) L 12/24/23 10:00 Potassium 3.8 mmol/L (3.5-5.1) 12/24/23 10:00 Chloride 101 mmol/L (98-107) 12/24/23 10:00 Carbon Dioxide 23 mmol/L (22-29) 12/24/23 10:00 Anion Gap 14.8 (5-19) 12/24/23 10:00 BUN 19 mg/dL (6-20) 12/24/23 10:00 Creatinine 0.9 mg/dL (0.7-1.2) 12/24/23 10:00 GFR Calculation 88.3 mL/min (90-130) L 12/24/23 10:00 Glucose 135 mg/dL (65-115) H 12/24/23 10:00 Calculated Osmolality 284 mOsm/kg (285-295) L 12/24/23 10:00 Calcium 9.0 mg/dL (8.5-10.5) 12/24/23 10:00 Total Bilirubin 0.9 mg/dL (0.15-1.2) 12/24/23 10:00 AST 13 U/L (0-40) 12/24/23 10:00 ALT 12 U/L (0-41) 12/24/23 10:00 Alkaline Phosphatase 76 U/L (40-130) 12/24/23 10:00 Troponin T Baseline < 6 ng/L (0-15) 12/24/23 10:00 Troponin T 120 Minute 6.80 ng/L (0-15) 12/24/23 11:48 Delta Troponin T 0.67441 ABS# (0-10) 12/24/23 11:48 Total Protein 6.7 g/dL (6.6-8.7) 12/24/23 10:00 Albumin 4.2 g/dL (3.5-5.2) 12/24/23 10:00 Globulin 2.5 g/dL (1.3-4.6) 12/24/23 10:00 All radiology interpretation(s) finalized by discharge Discharge Plan Discharge Patient Disposition: Home Clinical Impression: Vasovagal syncope Condition: Stable Prescriptions: No Action Plexus Xfactor Multivitamin 2 tab PO QPM meloxicam 15 mg tablet 15 mg PO DAILY vitamin B complex Tablet 1 tab PO DAILY magnesium 250 mg Tablet 250 mg PO DAILY Fish Oil 1,000 mg (120 mg-180 mg) Capsule 1 cap PO DAILY Probiotic 10 billion cell Capsule 10,000 mmu cells PO DAILY turmeric root extract 500 mg Tablet 500 mg PO DAILY Discharge Orders: Discharge ED (Routine); Ordered 12/24/23 Ordered By: Fallon Segura Patient Instructions: Syncope (DC) Coding Level of Care Code ED Coverstitch Machine Operator for Dante Stevens
[2023-12-24] MEDS: sodium chloride 0.9% 1,000 ML 999 ML IV (10:03)
[2023-12-24 10:13] LABS: Basophils % 0.5 %; Eosinophils # 0.1 10^3/uL (0.0-0.8); Eosinophils % 1.2 %; Hematocrit 43.6 % (37-53); Lymphocytes # 1.1 10^3/uL (0.8-4.8); Lymphocytes % 25.3 %; Mean Corpuscular HGB Conc 34.6 g/dL (30-55); Mean Corpuscular Hemoglobin 31.5 pg (27-33); Mean Platelet Volume 10.9 fL (7.4-10.4); Monocytes # 0.4 10^3/uL (0.2-0.9); Monocytes % 10.5 %; Neutrophils # 2.61 10^3/uL (1.8-7.7); Neutrophils % 62.3 %; Nucleated Red Blood Cells % 0 %; Platelet Count 182 10^3/cmm (157-399); Red Blood Count 4.79 10^6/uL (3.85-5.65); Red Cell Distribution Width 11.8 % (12.1-15.1); White Blood Count 4.19 10^3/uL (3.29-11.43)
[2023-12-24 10:30] LABS: Alanine Aminotransferase 12 U/L (0-41); Albumin Level 4.2 g/dL (3.5-5.2); Alkaline Phosphatase 76 U/L (40-130); Anion Gap 14.8 (5-19); Aspartate Amino Transferase 13 U/L (0-40); Blood Urea Nitrogen 19 mg/dL (6-20); Carbon Dioxide 23 mmol/L (22-29); Chloride 101 mmol/L (98-107); Creatinine Clr Calc Pharmacy 109.4294; Globulin 2.5 g/dL (1.3-4.6); Glomerular Filtration Rate 88.3 mL/min (90-130); Glucose 135 mg/dL (65-115); Osmolality Calculated 284 mOsm/kg (285-295); Potassium 3.8 mmol/L (3.5-5.1); Sodium 135 mmol/L (136-145); Total Bilirubin 0.9 mg/dL (0.15-1.2); Total Protein 6.7 g/dL (6.6-8.7); Troponin(5th) Baseline < 6 ng/L (0-15)
[2023-12-24 11:00] VITALS: BP 110/65; PULSE 57; RESP 17; O2SAT 97
--- NOTE | 2023-12-24 11:45 | ECG_ITS ---
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 Measurements Intervals [place] Rate: 54 P: 65 SC: 162 QRS: 76 QRSD: 79 T: 64 QT: 432 QTc: 410 Interpretive Statements SINUS BRADYCARDIA Compared to ECG 12/24/2023 09:48:26 Sinus rhythm no longer present Electronically Signed On 12-24-2023 17:23:38 CDT by Waldemar Morales M.D. [id number]
[2023-12-24 12:00] VITALS: BP 103/63; PULSE 54; RESP 15; O2SAT 98
[2023-12-24 12:21] LABS: Troponin 5 2HR Delta 0.80001 ABS# (0-10)
== END 2023-12-24 12:35 | disposition home or self-care (01) ==
PROVIDERS: Emergency Provider Physician Assistant
DX: R55 Syncope and collapse (principal); R07.9 Chest pain, unspecified; R06.02 Shortness of breath; F17.210 Nicotine dependence, cigarettes, uncomplicated
CPT/HCPCS: 71045; 80053; 84484; 85025; 93005; 96360; 99285; J7030